=== PATIENT | male | born 1970 | race Caucasian/White ===

== ENCOUNTER 2017-04-24 11:13 | Emergency (ER) | payer BC ==
[2017-04-24 11:27] VITALS: BP 128/76
--- NOTE | 2017-04-24 13:08 | UC ---
Throat Pain/Nasal Kenneth HPI - HPI Summary HPI Summary: 4 weeks of worsening sinus pain and congestion now also has a congested cough- no fevers-everyone in his group at work has the same c/o - History of Current Complaint Chief Complaint: UCRespiratory Stated Complaint: SINUS/CHEST CONGESTION Time Seen by Provider: 04/24/17 12:37 Hx Obtained From: Patient Onset/Duration: Gradual Onset, Lasting Weeks - 4, Worse Since - past 2 weeks Severity: Moderate Pain Intensity: 8 Pain Scale Used: 0-10 Numeric Cough: Nonproductive Associated Signs & Symptoms: Positive: Hoarseness, Sinus Discomfort Related History: Seasonal Allergies - Allergies/Home Medications Allergies/Adverse Reactions: Allergies Allergy/AdvReac Type Severity Reaction Status Date / Time Erythromycin AdvReac Diarrhea Verified 04/24/17 11:27 PMH/Surg Hx/FS Hx/Imm Hx Previously Healthy: No GI/ History: Gastroesophageal Reflux Psychological History: Depression - Surgical History Surgical History: Yes Surgery Procedure, Year, and Place: HEART CATH 2008. DEVIATED SEPTUM SX AGE 18. DOUBLE HERNIA REPAIR. LEFT MASTECTOMY 13 YEARS AGO FOR BREAST LUMP - Family History Known Family History: Positive: Cardiac Disease, Diabetes - Social History Occupation: Employed Full-time Lives: With Family Alcohol Use: Rare Substance Use Type: None Smoking Status (MU): Never Smoked Tobacco - Immunization History Most Recent Influenza Vaccination: no Review of Systems Constitutional: Negative Skin: Negative Eyes: Negative ENT: Sore Throat, Nasal Discharge, Sinus Congestion, Sinus Pain/Tenderness Respiratory: Cough Cardiovascular: Negative Gastrointestinal: Negative Genitourinary: Negative Motor: Negative Neurovascular: Negative Musculoskeletal: Negative Neurological: Negative Psychological: Negative Is Patient Immunocompromised?: No All Other Systems Reviewed And Are Negative: Yes Physical Exam Triage Information Reviewed: Yes Appearance: No Pain Distress, Well-Nourished, Ill-Appearing - mild Vital Signs: Initial Vital Signs Temp 98.9 F 04/24/17 11:23 Pulse 76 04/24/17 11:23 Resp 18 04/24/17 11:23 BP 128/76 04/24/17 11:23 Pulse Ox 98 04/24/17 11:23 Vital Signs Reviewed: Yes Eye Exam: Normal Eyes: Positive: Conjunctiva Clear ENT Exam: Normal ENT: Positive: Normal ENT inspection, Hearing grossly normal, Pharynx normal, Nasal congestion, TMs normal, Hoarse voice, Sinus tenderness, Uvula midline. Negative: Tonsillar swelling, Tonsillar exudate, Trismus, Muffled voice, Dental tenderness Dental Exam: Normal Neck exam: Normal Neck: Positive: Supple, Nontender, No Lymphadenopathy Respiratory Exam: Normal Respiratory: Positive: Chest non-tender, No respiratory distress, No accessory muscle use, Wheezing Cardiovascular Exam: Normal Cardiovascular: Positive: RRR, No Murmur, Pulses Normal, Brisk Capillary Refill Musculoskeletal Exam: Normal Musculoskeletal: Positive: Strength Intact, ROM Intact, No Edema Neurological Exam: Normal Neurological: Positive: Alert, Muscle Tone Normal Psychological Exam: Normal Skin Exam: Normal Throat Pain/Nasal Course/Dx - Course Assessment/Plan: Augmentin, flonase, albuterol, increase fluids rest otc meds for symptom relief follow with pcp prn - Differential Dx/Diagnosis Provider Diagnoses: Acute Rhinosinusitits Discharge - Discharge Plan Condition: Stable Disposition: HOME Prescriptions: Albuterol HFA INHALER* [Ventolin HFA Inhaler*] 2 puff INH Q6H PRN #1 mdi PRN Reason: cough Amoxicillin/Clavulanate TAB* [Augmentin TAB 875*] 875 mg PO BID #20 tab Fluticasone NASAL SPRAY 50MCG* [Flonase NASAL SPRAY 50MCG*] 2 spray BOTH NARES DAILY #1 btl Patient Education Materials: Sinusitis (ED), Acute Cough (ED) Referrals: Deric Guevara MD [Primary Care Provider] - If Needed
== END 2017-04-24 13:04 | disposition home or self-care (01) ==
LOC: UCCORT 11:13
DX: J01.90 Acute sinusitis, unspecified (principal)
CPT/HCPCS: 99212; G0463

== ENCOUNTER 2018-04-16 07:07 | Emergency (ER) | payer BC ==
[2018-04-16 07:24] VITALS: BP 114/74
[2018-04-16] MEDS ORDERED: Albuterol 2.5 MG/3 ML NEB.SOL* (0.083%) INH ONE (07:57)
[2018-04-16] MEDS ORDERED: Ipratropium 0.5MG/2.5ML NEB* 0.5 MG/2.5 ML NEB.SOLN INH ONE (07:57)
[2018-04-16] MEDS ORDERED: predniSONE TAB* 20 MG PO ONE (07:57)
--- NOTE | 2018-04-16 08:03 | UC ---
Respiratory Complaint HPI - HPI Summary HPI Summary: The patient is a 48-year-old male with a 5-6 day history of progressively worsening nasal congestion, postnasal drip, sinus pressure and pain, cough, and wheezing. His cough has been productive at times. Has felt feverish. Today he has myalgias and arthralgias. He uses an inhaler daily before he goes to work. He works in the [employer]. He has had a history of both bronchitis and pneumonia. - History of Current Complaint Chief Complaint: UCRespiratory Stated Complaint: ACHY BODY, HEADACHE, COUGH Time Seen by Provider: 04/16/18 07:35 Hx Obtained From: Patient Onset/Duration: Gradual Onset, Lasting Days Timing: Constant Severity Initially: Mild Severity Currently: Moderate Pain Intensity: 7 Pain Scale Used: 0-10 Numeric Character: Cough: Productive Aggravating Factors: Exertion, Deep Breaths, Recumbent Position Alleviating Factors: Nothing Associated Signs And Symptoms: Positive: Fever - [place], Chills, Wheezing, URI, Nasal Congestion, Hoarseness - Allergies/Home Medications Allergies/Adverse Reactions: Allergies Allergy/AdvReac Type Severity Reaction Status Date / Time erythromycin base Allergy Diarrhea Verified 04/16/18 07:24 Home Medications: Home Medications Pheniramine/P-Eph/Acetaminophn [Theraflu Flu & Sore Throat] 1 each PO DAILY [History Confirmed 04/16/18] PMH/Surg Hx/FS Hx/Imm Hx Previously Healthy: Yes Respiratory History: Asthma, Bronchitis - Surgical History Surgical History: Yes Surgery Procedure, Year, and Place: HEART CATH 2008. DEVIATED SEPTUM SX AGE 18. DOUBLE HERNIA REPAIR. LEFT MASTECTOMY 13 YEARS AGO FOR BREAST LUMP - Family History Known Family History: Positive: Cardiac Disease, Diabetes, Other - sister with breast CA (), sister with ovarian CA () - Social History Alcohol Use: Rare Substance Use Type: None Smoking Status (MU): Never Smoked Tobacco Type: Smokeless Tobacco Amount Used/How Often: 1/2 can per week - Immunization History Most Recent Influenza Vaccination: no Review of Systems All Other Systems Reviewed And Are Negative: Yes Constitutional: Positive: Fever, Chills Skin: Positive: Negative Eyes: Positive: Negative ENT: Positive: Nasal Discharge, Sinus Congestion Respiratory: Positive: Cough Cardiovascular: Positive: Negative Gastrointestinal: Positive: Negative Genitourinary: Positive: Negative Motor: Positive: Negative Neurovascular: Positive: Negative Musculoskeletal: Positive: Negative Neurological: Positive: Negative Psychological: Positive: Negative Physical Exam Triage Information Reviewed: Yes Appearance: Well-Appearing, No Pain Distress, Well-Nourished Vital Signs: Initial Vital Signs Temp 97.9 F 04/16/18 07:17 Pulse 85 04/16/18 07:17 Resp 19 04/16/18 07:17 BP 114/74 04/16/18 07:17 Pulse Ox 97 04/16/18 07:17 Vital Signs Reviewed: Yes Eyes: Positive: Conjunctiva Clear ENT: Positive: Hearing grossly normal, Nasal congestion, Nasal drainage, Sinus tenderness - R>L, Uvula midline. Negative: Trismus, Muffled voice, Hoarse voice , Dental tenderness Dental Exam: Normal Neck: Positive: Supple, Nontender, No Lymphadenopathy Respiratory: Positive: No respiratory distress, No accessory muscle use, Wheezing Cardiovascular: Positive: RRR, No Murmur Musculoskeletal: Positive: ROM Intact, No Edema Neurological: Positive: Alert Psychological Exam: Normal Skin Exam: Normal UC Diagnostic Evaluation - Laboratory O2 Sat by Pulse Oximetry: 97 - normal/not hypoxic Diagnostic Studies Comment: influenza A and B (-) Re-Evaluation - Re-Evaluation First Eval Re-Evaluation Time: 08:36 Change: Improved Comment: still wheezing but better air movement Respiratory Course/Dx - Differential Dx/Diagnosis Provider Diagnosis: Sinusitis, Bronchospasm with bronchitis, acute Discharge - Sign-Out/Discharge Documenting (check all that apply): Patient Departure All imaging exams completed and their final reports reviewed: No Studies - Discharge Plan Condition: Stable Disposition: HOME Prescriptions: Amoxicillin PO (*) [Amoxicillin 875 MG (*)] 875 mg PO BID #14 tab Fluticasone NASAL SPRAY 50MCG* [Flonase NASAL SPRAY 50MCG*] 2 spray BOTH NARES BID #1 btl predniSONE [Deltasone 20 MG TAB] 40 mg PO DAILY #10 tab Patient Education Materials: Sinusitis (ED), Acute Bronchitis (ED), How to Use a Metered-Dose Inhaler and a Spacer (ED) Referrals: Deric Guevara MD [Primary Care Provider] - Additional Instructions: use inhaler as directed recheck for new or worsening symptoms recheck in 4-7 days if not better - Billing Disposition and Condition Condition: STABLE Disposition: Home - Attestation Statements Provider Attestation: Per institutional requirements, I have reviewed the chart, however, I was not consulted specifically or made aware of this patient by the midlevel provider. I did not personally evaluate, interact with , or disposition this patient.
[2018-04-16] MEDS ORDERED: Albuterol HFA INHALER* 8 gm MDI INH ONE (08:33)
== END 2018-04-16 08:51 | disposition home or self-care (01) ==
LOC: UCCORT 07:07
DX: J32.9 Chronic sinusitis, unspecified (principal); J20.9 Acute bronchitis, unspecified; Z88.1 Allergy status to other antibiotic agents
CPT/HCPCS: 99213; A9270-GY; G0463; J7512

== ENCOUNTER 2018-06-07 09:40 | Emergency (ER) | payer BC ==
[2018-06-07 10:21] VITALS: BP 139/80
[2018-06-07 10:51] LABS: Influenza A Molecular NEGATIVE (Negative); Influenza B Molecular NEGATIVE (Negative)
--- NOTE | 2018-06-07 11:03 | UC ---
Throat Pain/Nasal Kenneth HPI - HPI Summary HPI Summary: 48-year-old male comes in with a chief complaint of 3 days of upper respiratory tract infection symptoms and bronchitis symptoms. Started with a runny nose and cough. It's moved down into the chest. Last night he use an albuterol inhaler which helped as he was having wheezing and chest congestion. He does work in the [employer]. He's had these albuterol inhalers when his had bronchitis before but not otherwise. Not a smoker. No measured fevers. - History of Current Complaint Chief Complaint: UCRespiratory Stated Complaint: MAYS,CHEST CONGESTION Time Seen by Provider: 06/07/18 10:54 Pain Intensity: 0 - Allergies/Home Medications Allergies/Adverse Reactions: Allergies Allergy/AdvReac Type Severity Reaction Status Date / Time erythromycin base Allergy Diarrhea Verified 06/07/18 10:14 Home Medications: Home Medications Acetaminophen TAB* [Tylenol TAB*] 650 mg PO Q4H PRN 06/07/18 [History Confirmed 06/07/18] Albuterol HFA INHALER* [Ventolin HFA Inhaler*] 1 - 2 puff INH Q4H PRN 06/07/18 [ History Confirmed 06/07/18] PMH/Surg Hx/FS Hx/Imm Hx Previously Healthy: Yes - Surgical History Surgical History: Yes Surgery Procedure, Year, and Place: HEART CATH 2008. DEVIATED SEPTUM SX AGE 18. DOUBLE HERNIA REPAIR. LEFT MASTECTOMY 13 YEARS AGO FOR BREAST LUMP - Family History Known Family History: Positive: Cardiac Disease, Diabetes, Other - sister with breast CA (), sister with ovarian CA () - Social History Alcohol Use: Rare Substance Use Type: None Smoking Status (MU): Current Every Day Smoker Type: Smokeless Tobacco Amount Used/How Often: 1 can per week - Immunization History Most Recent Influenza Vaccination: no Review of Systems All Other Systems Reviewed And Are Negative: Yes Constitutional: Positive: Negative Skin: Positive: Negative Eyes: Positive: Negative ENT: Positive: Sore Throat, Nasal Discharge, Sinus Congestion Respiratory: Positive: Shortness Of Breath, Cough, Other - wheezing Cardiovascular: Positive: Negative Gastrointestinal: Positive: Negative Motor: Positive: Negative Neurovascular: Positive: Negative Musculoskeletal: Positive: Negative Neurological: Positive: Negative Psychological: Positive: Negative Is Patient Immunocompromised?: No Physical Exam Triage Information Reviewed: Yes Appearance: No Pain Distress, Well-Nourished, Ill-Appearing - mild Vital Signs: Initial Vital Signs Temp 98.1 F 06/07/18 10:16 Pulse 76 06/07/18 10:16 Resp 16 06/07/18 10:16 BP 139/80 06/07/18 10:16 Pulse Ox 98 06/07/18 10:16 Vital Signs Reviewed: Yes Eye Exam: Normal Eyes: Positive: Conjunctiva Clear ENT: Positive: Pharyngeal erythema, Nasal congestion, Nasal drainage, TMs normal Neck exam: Normal Neck: Positive: Supple Respiratory: Positive: No respiratory distress, No accessory muscle use, Rhonchi Cardiovascular: Positive: RRR Musculoskeletal Exam: Normal Musculoskeletal: Positive: Strength Intact, ROM Intact Neurological Exam: Normal Neurological: Positive: Alert, Muscle Tone Normal Psychological Exam: Normal Psychological: Positive: Age Appropriate Behavior Skin Exam: Normal Throat Pain/Nasal Course/Dx - Course Course Of Treatment: DISCUSSED VIRAL VERSES BACTERIAL INFECTION AND THE ROLE OF ANTIBIOTICS. THE PATIENT WISHES TO BE ON ANTIBIOTIC AT THIS TIME. - Differential Dx/Diagnosis Provider Diagnosis: Bronchitis with bronchospasm Discharge - Sign-Out/Discharge Documenting (check all that apply): Patient Departure All imaging exams completed and their final reports reviewed: No Studies - Discharge Plan Condition: Stable Disposition: HOME Prescriptions: Albuterol HFA INHALER* [Ventolin HFA Inhaler*] 2 puff INH Q4H PRN #1 mdi PRN Reason: Wheezing Amoxicillin PO (*) [Amoxicillin 875 MG (*)] 875 mg PO BID #20 tab Benzonatate CAP* [Tessalon 100 MG CAP*] 100 mg PO TID PRN #20 cap PRN Reason: Cough Fluticasone NASAL SPRAY 50MCG* [Flonase NASAL SPRAY 50MCG*] 2 spray BOTH NARES DAILY #1 btl predniSONE TAB* [Deltasone 20 MG TAB*] 40 mg PO DAILY #10 tab Patient Education Materials: Acute Bronchitis (ED), Bronchospasm (ED) Referrals: Deric Guevara MD [Primary Care Provider] - Additional Instructions: FOLLOW UP WITH YOUR DOCTOR IF NOT COMPLETELY IMPROVED. GET RECHECKED SOONER WITH ANY WORSENING OF YOUR CONDITION OR QUESTIONS OR CONCERNS. - Billing Disposition and Condition Condition: STABLE Disposition: Home
== END 2018-06-07 11:10 | disposition home or self-care (01) ==
LOC: UCCORT 09:40
DX: J40 Bronchitis, not specified as acute or chronic (principal); J98.01 Acute bronchospasm; J06.9 Acute upper respiratory infection, unspecified; R05 Cough; F17.290 Nicotine dependence, other tobacco product, uncomplicated; Z88.1 Allergy status to other antibiotic agents
CPT/HCPCS: 99212; G0463

== ENCOUNTER 2019-06-04 08:20 | Emergency (ER) | payer BC ==
[2019-06-04 08:48] VITALS: BP 125/88
[2019-06-04 09:18] LABS: Influenza A Molecular POSITIVE (Negative)
--- NOTE | 2019-06-04 09:32 | UC ---
FLU HPI - HPI Summary HPI Summary: Pt presents with c/o sudden onset of fever, chisll, cough, body aches X 5 days. - History of Current Complaint Chief Complaint: UCRespiratory Stated Complaint: CONGESTION SORE THROAT ACHY Time Seen by Provider: 06/04/19 09:05 Hx Obtained From: Patient Onset/Duration: Sudden Onset, Lasting Days, Lasting Weeks, Worse Since - onset Severity Currently: Mild Severity Initially: Moderate Pain Intensity: 6 Associated Signs & Symptoms: Positive: Fever, Myalgia, Cough, Sore Throat, Nasal Congestion Related Hx: Possible Flu/Infectious Exposure - Risk Factors Influenza Risk Factors: Negative - Allergy/Home Medications Allergies/Adverse Reactions: Allergies Allergy/AdvReac Type Severity Reaction Status Date / Time acetaminophen Allergy See Comment Verified 06/04/19 08:43 erythromycin base Allergy Diarrhea Verified 06/04/19 08:42 Home Medications: Home Medications Loratadine [Claritin 10 MG CAP] 10 mg PO DAILY 06/04/19 [History Confirmed 06/04] Omeprazole 20 mg PO DAILY 06/04/19 [History Confirmed 06/04/19] PMH/Surg Hx/FS Hx/Imm Hx Previously Healthy: Yes - Surgical History Surgical History: Yes Surgery Procedure, Year, and Place: HEART CATH 2008. DEVIATED SEPTUM SX AGE 18. DOUBLE HERNIA REPAIR. LEFT MASTECTOMY 13 YEARS AGO FOR BREAST LUMP - Family History Known Family History: Positive: Cardiac Disease, Diabetes, Other - sister with breast CA (), sister with ovarian CA () - Social History Occupation: Employed Full-time Lives: With Family Alcohol Use: Rare Substance Use Type: None Smoking Status (MU): Current Every Day Smoker Type: Smokeless Tobacco Amount Used/How Often: 1 can per week, but none past 5 days Have You Smoked in the Last Year: Yes - Immunization History Most Recent Influenza Vaccination: no Vaccination Up to Date: No Review of Systems All Other Systems Reviewed And Are Negative: Yes Constitutional: Positive: Fever, Chills, Fatigue Skin: Positive: Negative Eyes: Positive: Negative ENT: Positive: Sinus Congestion Respiratory: Positive: Cough, Other - wheezing Cardiovascular: Positive: Negative Gastrointestinal: Positive: Negative Genitourinary: Positive: Negative Motor: Positive: Negative Neurovascular: Positive: Negative Musculoskeletal: Positive: Myalgia Neurological: Positive: Headache Psychological: Positive: Negative Is Patient Immunocompromised?: No Physical Exam Triage Information Reviewed: Yes Appearance: Ill-Appearing Vital Signs: Initial Vital Signs Temp 98.7 F 06/04/19 08:44 Pulse 79 06/04/19 08:44 Resp 17 06/04/19 08:44 BP 125/88 06/04/19 08:44 Pulse Ox 97 06/04/19 08:44 Vital Signs Reviewed: Yes Eye Exam: Normal ENT: Positive: Nasal congestion Dental Exam: Normal Neck exam: Normal Respiratory: Positive: Wheezing, Expiration Cardiovascular Exam: Normal Musculoskeletal Exam: Normal Neurological Exam: Normal Psychological Exam: Normal Skin Exam: Normal Flu Course/Dx - Differential Dx/Diagnosis Differential Diagnosis/HQI/PQRI: Influenza, Upper Respiratory Infection Provider Diagnosis: Influenza A Discharge ED - Sign-Out/Discharge Documenting (check all that apply): Patient Departure All imaging exams completed and their final reports reviewed: No Studies - Discharge Plan Condition: Stable Disposition: HOME Prescriptions: Benzonatate CAP* [Tessalon 100 MG CAP*] 100 - 200 mg PO Q8H PRN #30 cap PRN Reason: Cough Oseltamivir CAP* [Tamiflu CAP*] 75 mg PO Q12H #10 cap predniSONE 10 mg TAB [Deltasone 10 MG TAB*] 30 mg PO DAILY #18 tab Patient Education Materials: Influenza (ED) Referrals: Deric Guevara MD [Primary Care Provider] - If Needed - Billing Disposition and Condition Condition: STABLE Disposition: Home
== END 2019-06-04 09:48 | disposition home or self-care (01) ==
LOC: UCCORT 08:20
DX: J10.1 Influenza due to other identified influenza virus with other respiratory manifestations (principal); F17.290 Nicotine dependence, other tobacco product, uncomplicated; Z88.6 Allergy status to analgesic agent; Z88.1 Allergy status to other antibiotic agents
CPT/HCPCS: 99212; G0463